=== PATIENT | female | born 1995 | race Caucasian/White ===

== ENCOUNTER → 2024-06-06 15:56 | Outpatient (REF) | payer OTHER, SELFPAY | LOC: RAD 15:56 | PROVIDERS: ATTENDING PHYSICIAN Student in an Organized Health Care Education/Training Program; FAMILY PHYSICIAN Family Medicine | DX: Z34.01 Encounter for supervision of normal first pregnancy, first trimester (principal); O26.859 Spotting complicating pregnancy, unspecified trimester | CPT/HCPCS: 76801; 76817 ==

== ENCOUNTER → 2024-06-24 15:23 | Outpatient (REF) | payer OTHER, SELFPAY | LOC: PNTC 15:23 | PROVIDERS: ATTENDING PHYSICIAN Student in an Organized Health Care Education/Training Program | DX: Z34.01 Encounter for supervision of normal first pregnancy, first trimester (principal); O26.851 Spotting complicating pregnancy, first trimester | CPT/HCPCS: 76801 ==

== ENCOUNTER → 2024-07-22 16:57 | Outpatient (REF) | payer OTHER, SELFPAY | LOC: PNTC 16:57 | PROVIDERS: ATTENDING PHYSICIAN Student in an Organized Health Care Education/Training Program | DX: Z36.0 Encounter for antenatal screening for chromosomal anomalies (principal); Z36.82 Encounter for antenatal screening for nuchal translucency | CPT/HCPCS: 76801; 76813 ==

== ENCOUNTER → 2024-09-10 15:54 | Outpatient (REF) | payer OTHER, SELFPAY | LOC: PNTC 15:54 | PROVIDERS: ATTENDING PHYSICIAN Student in an Organized Health Care Education/Training Program | DX: Z34.90 Encounter for supervision of normal pregnancy, unspecified, unspecified trimester (principal) | CPT/HCPCS: 76811 ==

== ENCOUNTER → 2024-10-29 16:54 | Outpatient (REF) | payer OTHER, SELFPAY | LOC: PNTC 16:54 | PROVIDERS: ATTENDING PHYSICIAN Student in an Organized Health Care Education/Training Program | DX: O99.212 Obesity complicating pregnancy, second trimester (principal); O35.5XX0 Maternal care for (suspected) damage to fetus by drugs, not applicable or unspecified; F41.1 Generalized anxiety disorder | CPT/HCPCS: 76816 ==

== ENCOUNTER → 2024-11-12 10:00 | Outpatient (REF) | payer OTHER, SELFPAY | LOC: PNTC 10:00 | PROVIDERS: ATTENDING PHYSICIAN Obstetrics & Gynecology | DX: Z34.90 Encounter for supervision of normal pregnancy, unspecified, unspecified trimester (principal) | CPT/HCPCS: 36415; 86850; 86900; 86901; 96372; J2790 ==

== ENCOUNTER → 2024-12-18 16:47 | Outpatient (REF) | payer OTHER, SELFPAY | LOC: PNTC 16:47 | PROVIDERS: ATTENDING PHYSICIAN Student in an Organized Health Care Education/Training Program | DX: O35.5XX0 Maternal care for (suspected) damage to fetus by drugs, not applicable or unspecified (principal); O99.213 Obesity complicating pregnancy, third trimester; F41.1 Generalized anxiety disorder | CPT/HCPCS: 76816 ==

== ENCOUNTER 2025-01-15 16:34 | Inpatient (IN) | payer OTHER, SELFPAY ==
[2025-01-15 16:48] VITALS: BP 137/85; BMI 35.2
[2025-01-15 17:43] LABS: Hematocrit 39.1 % (37.0-47.0); Hemoglobin 13.4 g/dL (12.0-16.0); Mean Corp Hgb Conc. 34.3 g/dL (33.0-37.0); Mean Corpuscular Volume 91.1 fL (81.0-99.0); Platelet Count 186 10^3/uL (130-400); Red Cell Dist. Width 14.0 % (11.5-14.5)
[2025-01-15 17:46] LABS: Urine Character Slightly Cloudy (Clear)
[2025-01-15 18:10] LABS: ALT (SGPT) 14 U/L (0-35); AST (SGOT) 27 U/L (14-36); Albumin 3.5 g/dl (3.5-5.0); Alkaline Phosphatase 198 U/L (38-126); Blood Urea Nitrogen 16 mg/dl (7-17); Calcium 9.8 mg/dl (8.4-10.2); Carbon Dioxide 23 mmol/L (22-30); Chloride 104 mmol/L (98-107); Estimated Creatinine Clearance 121 ml/min; Glucose 87 mg/dl (70-99); Potassium 4.6 mmol/L (3.5-5.1); Sodium 133 mmol/L (135-145); Total Protein 7.0 g/dl (6.3-8.2); eGFR > 60.00
[2025-01-15 18:19] LABS: Urine Red Blood Cell 0-2 /HPF (0-2); Urine Squamous Cell >30 /LPF (Few); Urine White Cell 40-50 /HPF (0-5)
[2025-01-15] MEDS: CYTOTEC 25 MICROGRAM VAG (21:18)
[2025-01-16] MEDS: CYTOTEC PO (02:09)
[2025-01-16] MEDS: CYTOTEC 50 MICROGRAM PO ×2 (02:21→11:08)
[2025-01-16 06:14] LABS: Hematocrit 38.5 % (37.0-47.0); Hemoglobin 12.9 g/dL (12.0-16.0); Mean Corp Hgb Conc. 33.5 g/dL (33.0-37.0); Mean Corpuscular Volume 90.8 fL (81.0-99.0); Platelet Count 176 10^3/uL (130-400); Red Cell Dist. Width 13.9 % (11.5-14.5)
[2025-01-16 06:37] LABS: ALT (SGPT) 13 U/L (0-35); AST (SGOT) 20 U/L (14-36); Albumin 3.2 g/dl (3.5-5.0); Alkaline Phosphatase 186 U/L (38-126); Blood Urea Nitrogen 13 mg/dl (7-17); Calcium 8.6 mg/dl (8.4-10.2); Carbon Dioxide 22 mmol/L (22-30); Chloride 107 mmol/L (98-107); Estimated Creatinine Clearance > 125 ml/min; Glucose 85 mg/dl (70-99); Potassium 4.2 mmol/L (3.5-5.1); Sodium 134 mmol/L (135-145); Total Protein 6.3 g/dl (6.3-8.2); eGFR > 60.00
[2025-01-16] MEDS: LR 1000 IV ×3 (08:59→15:55)
[2025-01-16] MEDS: ZOLOFT 25 MG PO (09:00)
[2025-01-16] MEDS: TUMS CHEWABLE TABLET 400 MG PO (11:00)
[2025-01-16] MEDS: STADOL 1 MG IV (14:02)
[2025-01-16] MEDS: PITOCIN 30 UNITS/NSS 500 ML IV (14:47)
[2025-01-16] MEDS: SUBLIMAZE 100 MCG EPIDURAL (15:55)
[2025-01-16] MEDS: FENTANYL/BUPIVACAINE 100 EPIDURAL (15:56)
[2025-01-16] MEDS: BICITRA 30 ML PO (17:38)
[2025-01-16] MEDS: TYLENOL 975 MG PO (17:38)
[2025-01-17] MEDS: TORADOL 15 MG IV ×4 (00:03→18:02)
[2025-01-17] MEDS: TYLENOL 650 MG PO ×3 (00:04→20:46)
[2025-01-17 04:35] LABS: Hematocrit 34.4 % (37.0-47.0); Hemoglobin 11.9 g/dL (12.0-16.0); Mean Corp Hgb Conc. 34.6 g/dL (33.0-37.0); Mean Corpuscular Volume 91.5 fL (81.0-99.0); Platelet Count 194 10^3/uL (130-400); Red Cell Dist. Width 13.9 % (11.5-14.5)
[2025-01-17] MEDS: ZYRTEC 10 MG PO (08:32)
[2025-01-17] MEDS: ZOLOFT 25 MG PO (08:32)
[2025-01-17] MEDS: COLACE 100 MG PO ×2 (08:32→20:46)
--- NOTE | 2025-01-17 15:07 | W.PN.ANS.POP ---
Anesthesia Post Operative
- Anesthesia Post Op Note
Vital Signs Stable-See Nursing Note: Yes
Airway Patent: Yes
Adequate Pain Control: Yes
Change in Mental Status: No
Current Postoperative Nausea & Vomiting: No
Anesthesia Complications: No
General Anesthetic Recall: No
Unplanned Admission: No
Post Op Hydration Adequate: Yes
[2025-01-17] MEDS: RHOGAM 300 MCG IM (18:27)
[2025-01-17] MEDS: COLACE PO (22:50)
[2025-01-18] MEDS: MOTRIN 600 MG PO ×4 (00:04→20:31)
[2025-01-18] MEDS: TYLENOL 650 MG PO ×3 (06:12→20:31)
[2025-01-18] MEDS: ZOLOFT 25 MG PO (08:09)
[2025-01-18] MEDS: ZYRTEC 10 MG PO (08:09)
[2025-01-18] MEDS: COLACE 100 MG PO ×2 (08:09→19:38)
[2025-01-19] MEDS: ZOLOFT 25 MG PO (08:07)
[2025-01-19] MEDS: ZYRTEC 10 MG PO (08:07)
[2025-01-19] MEDS: COLACE 100 MG PO (08:07)
[2025-01-19] MEDS: TYLENOL 650 MG PO (08:21)
[2025-01-19] MEDS: MOTRIN 600 MG PO (08:21)
--- NOTE | 2025-01-19 09:37 | W.DS.TRANS ---
DC Summary - [employer]
-
Discharge Instructions:
Discharge Diagnosis/Procedures primary cs
Instructions:
Stand-Alone Forms: LDRP Delivery
Changes to Home Medications: No
Discharge Medications:
DC Medications w/original date [facility]
cetirizine 10 mg capsule (Zyrtec) 10 mg PO DAILY Allergies 01/15/25
sertraline 25 mg tablet (Zoloft) 25 mg PO DAILY depression/anxiety 01/15/25
acetaminophen 325 mg tablet 650 mg (2 x 325 mg) PO Q4HPRN PRN mild pain #0 tabs 01/19/25
docusate sodium 100 mg capsule 100 mg PO BID #0 caps 01/19/25
ibuprofen 600 mg tablet 600 mg PO Q6HPRN PRN cramps #30 tabs 01/19/25
sennosides 8.6 mg tablet (Fabiana-guy) 17.2 mg (2 x 8.6 mg) PO HSPRN PRN constipation #0 tabs 01/19/25
simethicone 80 mg chewable tablet 80 mg PO TIDPRN PRN flatulence #0 tabs 01/19/25
Home Medication Changes
Pending Results: No
Total time spent discharging patient (in min): 20
[2025-01-20 15:38] LABS: Syphilis/T. pallidum Ab Reflex Negative (Negative)
== END 2025-01-19 12:00 | disposition home or self-care (01) | DRG 788 ==
LOC: LDRP 16:34
PROVIDERS: Obstetrics & Gynecology; ADMITTING PHYSICIAN Obstetrics & Gynecology
PROC: 10D00Z1 Extraction of Products of Conception, Low, Open Approach (ICD-10-PCS; 2025-01-17)
PROC: 3E0234Z Introduction of Serum, Toxoid and Vaccine into Muscle, Percutaneous Approach (ICD-10-PCS; 2025-01-17)
DX: O14.04 Mild to moderate pre-eclampsia, complicating childbirth (principal); Z3A.38 38 weeks gestation of pregnancy; Z37.0 Single live birth; O76 Abnormality in fetal heart rate and rhythm complicating labor and delivery; Z88.0 Allergy status to penicillin
CPT/HCPCS: 80053; 81003; 81015; 82570; 84156; 85027; 85461; 86780; 86850; 86870; 86900; 86901; 88307; J2790